=== PATIENT | female | born 1990 | race Caucasian/White ===

== ENCOUNTER → 2017-07-14 16:30 | Outpatient (CLI) | payer MEDICARE, BC ==
[2010-07-04 05:57] VITALS: BMI 34.6
[~2017-07-14 16:30] MED LIST: HYDROCODONE-APA1 TAB PO; IBUPROFEN600 MG PO; IBUPROFEN800 MG PO; PERCOCET 10/3251 TA1 PO; PRENATAL COMPLE1 TAB PO
[2017-08-05 19:28] VITALS: BMI 45.3
== END | disposition home or self-care (01) ==
LOC: D.LDO 16:30
DX: O36.8190 Decreased fetal movements, unspecified trimester, not applicable or unspecified (principal); Z3A.00 Weeks of gestation of pregnancy not specified

== ENCOUNTER → 2017-07-17 14:30 | Outpatient (CLI) | payer MEDICARE, BC ==
[2010-07-04 05:57] VITALS: BMI 34.6
[2017-08-05 19:28] VITALS: BMI 45.3
== END | disposition home or self-care (01) ==
LOC: D.LDO 14:30
DX: O36.8130 Decreased fetal movements, third trimester, not applicable or unspecified (principal); Z3A.36 36 weeks gestation of pregnancy

== ENCOUNTER → 2017-07-23 15:03 | Outpatient (CLI) | payer MEDICARE, BC ==
[2010-07-04 05:57] VITALS: BMI 34.6
[2017-08-05 19:28] VITALS: BMI 45.3
== END | disposition home or self-care (01) ==
LOC: D.LABREF 15:03 → D.LDO 15:03
DX: O16.3 Unspecified maternal hypertension, third trimester (principal); Z3A.37 37 weeks gestation of pregnancy

== ENCOUNTER → 2017-08-03 14:28 | Outpatient (CLI) | payer BC ==
[2010-07-04 05:57] VITALS: BMI 34.6
[2017-08-05 19:28] VITALS: BMI 45.3
== END | disposition home or self-care (01) ==
LOC: D.LDO 14:28
DX: O16.3 Unspecified maternal hypertension, third trimester (principal); Z3A.38 38 weeks gestation of pregnancy

== ENCOUNTER 2017-08-05 04:35 | Inpatient (IN) | payer BC, MEDICAID ==
[~2017-08-05] VITALS: Ht 165.1 cm; Wt 123.4 kg
[2017-08-05] VITALS (17 sets, daily range): BP systolic 110–140; BP diastolic 56–80; Ht 165.1 cm; Wt 123.4 kg
--- NOTE | ~2017-08-05 | OP ---
PATIENT NAME: SIRI STEIN MEDICAL RECORD: [id number] :90 LOCATION:[id number] ADMISSION DATE:08/05/17 SURGEON: RENNY SALEEM MD DATE OF OPERATION: 08/05/2017 PREOPERATIVE DIAGNOSES: 1. Term intrauterine . 2. History of previous section. POSTOPERATIVE DIAGNOSES: 1. Term intrauterine . 2. History of previous section. PROCEDURE: Repeat low transverse section and bilateral distal salpingectomy. SURGEON: Renny Saleem MD ESTIMATED BLOOD LOSS: 1200 cc. INTRAVENOUS FLUIDS: Per anesthesia record. SPECIMENS: Placenta and cord for gases. FINDINGS: 1. Viable , Apgars 9 at 1 and 9 at 5. 2. Placenta delivered manually intact, 3-vessel cord noted. 4. Grossly normal appearing adnexa bilaterally. PROCEDURE IN DETAIL: The patient was taken to the operating room where regional anesthesia was achieved without any difficulty. The patient was then prepped and draped in normal sterile fashion in the dorsal supine position. SCDs were on and functioning normally. The patient had a Guy catheter, which was draining freely. The patient was then prepped and draped. The anesthetic field was then tested using an Allis clamp. A repeat Pfannenstiel skin incision was made, extended downward to the underlying subcutaneous fat to level of the fascia, was then excised carefully in the midline and extended bilaterally using the Morejon scissors. Superior and inferior aspects of the fascial incision were then grasped with Akbar clamps times 2, tented upward, and sharply dissected from underlying rectus muscle using the Morejon scissors and the Bovie cautery. The rectus muscles were then bluntly in the midline and sharply dissected away from its peritoneal effusion. The peritoneum was then entered at the superior aspect of the incision using the Metzenbaum scissors. The peritoneal incision was then extended using the Metzenbaum scissors laterally and inferiorly. The bladder was carefully dissected downward. Several adhesions were dissected from the uterus. A bladder flap was developed using the Metzenbaum scissors. A bladder blade was placed into the pelvis. A low transverse incision was made in the uterus and extended superiorly and inferiorly using the Pelosi method. The vertex was delivered atraumatically followed by the body. The infant was bulb suctioned upon delivery. Cord was clamped times 2, cut, and was handed to the awaiting nursery team. Cord was then obtained for gases and placenta removed manually intact, 3-vessel cord was noted. Uterus was then exteriorized, thoroughly cleared of all clots and debris and vigorously massaged until good uterine tone was noted. Uterus was then repaired with 0 Vicryl in a running locked fashion OPERATIVE REPORT [id number] SARITASIRI times 2 with good hemostasis noted. Posterior cul-de-sac was then thoroughly irrigated and uterus was replaced into the pelvis. Anterior cul-de-sac was then thoroughly irrigated and the uterine incision again checked and found to be hemostatic. Prior to replacing the uterus into the pelvis, the bilateral fallopian tubes were identified. A defect was made in the mesosalpinx. The Allyssa clamps were then placed across the mesosalpinx and across the fallopian tube. The distal half of the tube was then excised and the pedicles oversewn with 2-0 Vicryl suture times 2. This was performed bilaterally with good hemostasis noted on both sides. The uterus was then replaced into the pelvis. Irrigation was performed as mentioned. Counts were correct times 2 for sponges, instruments and needles. The fascia was then repaired with 0 loop PDS times 1 in a running fashion. The subcutaneous tissue was then approximated using 0 plain gut and the skin repaired with shila. The patient tolerated the procedure well, was transferred to postanesthesia recovery stable without incident. TRANSINT:[id number] Voice Confirmation ID: [id number] DOCUMENT ID: [id number] RENNY SALEEM MD at 1614 CC: [id number] DICTATION DATE: 09/11/17 0548 CURBER: 09/11/17 0757 DIS IN 08/08/17 [facility] [address] [id number]
[~2017-08-05 04:35] MED LIST changes: -HYDROCODONE-APA1 TAB PO; -IBUPROFEN600 MG PO
[2017-08-05 05:58] LABS: APPEARANCE CLOUDY (CLEAR); BILIRUBIN NEGATIVE (NEGATIVE); COLOR YELLOW (YELLOW); GLUCOSE NEGATIVE (NEGATIVE); KETONE NEGATIVE (NEGATIVE); NITRITE NEGATIVE (NEGATIVE); PROTEIN NEGATIVE (NEGATIVE); SPECIFIC GRAVITY 1.015 (1.005-1.020); UROBILINOGEN NORMAL (NORMAL)
[2017-08-05 05:59] LABS: BACTERIA MANY /hpf (NONE SEEN); EPITHELIAL CELLS 0-5 /hpf (0-5); RED CELLS - URINE 0-5 /hpf (0-5); WHITE CELLS - URINE 0-5 /hpf (0-5)
[2017-08-05 06:42] LABS: HEMATOCRIT 36.4 % (36.0-48.0); HEMOGLOBIN 12.1 g/dL (12-16); MCH 30.8 pg (26.0-34.0); MCHC 33.2 g/dL (31.0-37.0); MCV 92.6 fL (80.0-100.0); RBC 3.93 10x6/uL (4.00-5.40); RDW 13.9 % (11.5-14.5); WBC 8.7 10x3/uL (4.8-10.8)
[2017-08-05 20:12] LABS: BASOPHILS 0.1 % (0-2); EOSINOPHILS 0.5 % (0-7); HEMATOCRIT 29.4 % (36.0-48.0); IMMATURE GRANULOCYTES 0.5 % (0-5); LYMPHOCYTES 18.2 % (15-50); MCH 30.3 pg (26.0-34.0); MCHC 32.7 g/dL (31.0-37.0); MCV 92.7 fL (80.0-100.0); MEAN PLATELET VOLUME 11.1 fL (7.4-10.4); MONOCYTES 6.6 % (2-11); NEUTROPHILS 74.1 % (40-80); PLATELET COUNT 145 10x3/uL (130-400); RBC 3.17 10x6/uL (4.00-5.40); RDW 14.2 % (11.5-14.5); WBC 8.8 10x3/uL (4.8-10.8)
[2017-08-05 20:14] LABS: HEMOGLOBIN 9.6 g/dL (12-16)
[2017-08-06 02:46] VITALS: BP 118/68
[2017-08-06 06:00] LABS: BASOPHILS 0.1 % (0-2); EOSINOPHILS 0.5 % (0-7); HEMATOCRIT 28.3 % (36.0-48.0); HEMOGLOBIN 9.3 g/dL (12-16); IMMATURE GRANULOCYTES 0.3 % (0-5); LYMPHOCYTES 15.8 % (15-50); MCH 30.4 pg (26.0-34.0); MCHC 32.9 g/dL (31.0-37.0); MCV 92.5 fL (80.0-100.0); MEAN PLATELET VOLUME 10.5 fL (7.4-10.4); MONOCYTES 6.8 % (2-11); NEUTROPHILS 76.5 % (40-80); PLATELET COUNT 146 10x3/uL (130-400); RBC 3.06 10x6/uL (4.00-5.40); RDW 14.3 % (11.5-14.5); WBC 9.5 10x3/uL (4.8-10.8)
[2017-08-06 06:13] LABS: RAPID PLASMA REAGIN Non Reactive (Non Reactive)
[2017-08-06 07:37] VITALS: BP 123/79
[2017-08-06 17:00] VITALS: BP 129/82
[2017-08-06 19:17] VITALS: BP 127/75
[2017-08-06 22:22] VITALS: BP 121/58
[2017-08-07 03:56] VITALS: BP 122/68
[2017-08-07 07:07] VITALS: BP 119/72
[2017-08-07 12:56] VITALS: BP 126/69
[2017-08-07 19:28] VITALS: BP 131/79
[2017-08-07 23:22] VITALS: BP 142/87
[2017-08-08 07:20] VITALS: BP 135/76
[2017-08-08] MEDS ORDERED: HYDROCODONE-APA1 TAB PO (10:16)
[2017-08-08] MEDS ORDERED: IBUPROFEN600 MG PO (10:16)
== END 2017-08-08 11:30 | disposition home or self-care (01) | DRG 766 ==
LOC: D.LDO 04:35 → D.LD 05:52
PROVIDERS: Obstetrics & Gynecology
PROC: 10D00Z1 Extraction of Products of Conception, Low, Open Approach (ICD-10-PCS; principal; 2017-08-05 07:30)
PROC: 0UB70ZZ Excision of Bilateral Fallopian Tubes, Open Approach (ICD-10-PCS; 2017-08-05 07:30)
DX: O99.824 Streptococcus B carrier state complicating childbirth (principal); Z3A.39 39 weeks gestation of pregnancy; Z37.0 Single live birth; O34.219 Maternal care for unspecified type scar from previous cesarean delivery; O99.214 Obesity complicating childbirth; Z30.2 Encounter for sterilization; Z30.09 Encounter for other general counseling and advice on contraception

== ENCOUNTER 2019-02-10 07:35 | Day surgery (SDC) | payer BC, MEDICAID ==
[2019-02-08 08:53] LABS: BASOPHILS 0.3 % (0-2); EOSINOPHILS 3.5 % (0-7); HEMATOCRIT 38.8 % (36.0-48.0); HEMOGLOBIN 13.6 g/dL (12-16); IMMATURE GRANULOCYTES 0.2 % (0-5); LYMPHOCYTES 29.4 % (15-50); MCH 30.2 pg (26.0-34.0); MCHC 35.1 g/dL (31.0-37.0); MCV 86.2 fL (80.0-100.0); MEAN PLATELET VOLUME 9.8 fL (7.4-10.4); MONOCYTES 7.8 % (2-11); NEUTROPHILS 58.8 % (40-80); WBC 5.8 10x3/uL (4.8-10.8)
[2019-02-08 09:03] LABS: PLATELET COUNT 215 10x3/uL (130-400)
[~2019-02-10] VITALS: Ht 165.1 cm; Wt 111.8 kg
[2019-02-10 07:03] VITALS: BP 116/76; Ht 165.1 cm; Wt 111.8 kg
[2019-02-10 07:19] LABS: HCG URINE NEGATIVE (NEGATIVE)
[~2019-02-10 07:35] MED LIST changes: +HYDROCHLOROTH12.5 M1 PO; +HYDROCODONE-APA1 TAB PO; +IBUPROFEN600 MG PO; +ZOLOFT100 MG PO
--- NOTE | 2019-03-13 14:22 | OP ---
PATIENT NAME: SIRI STEIN MEDICAL RECORD: [id number] :90 [facility] ADMISSION DATE: SURGEON: RENNY SALEEM MD DATE OF OPERATION: 02/10/2019 PREOPERATIVE DIAGNOSIS: Menomenorrhagia. POSTOPERATIVE DIAGNOSIS: Menomenorrhagia. PROCEDURES: Hysteroscopy, D&C, NovaSure endometrial ablation. SURGEON: Renny Saleem MD ANESTHESIA: General endotracheal. INTRAVENOUS FLUIDS: Per anesthesia record. HYSTEROSCOPIC FLUID LOSS: Less than 100 cc of 0.9 normal saline. SPECIMENS: Endometrial curettings. FINDINGS: 1. Grossly normal appearing external genitalia and cervix. 2. Grossly normal appearing proliferative endometrial cavity. DESCRIPTION OF THE PROCEDURE: The patient taken to the operating room where general anesthesia was achieved without any difficulty. The patient was then prepped and draped in normal sterile fashion in the dorsal lithotomy position in the [facility]. The bladder was drained of approximately 150 cc of clear yellow urine. At this point, a Graves speculum was placed into the vagina and the anterior lip of the cervix was grasped with single tooth tenaculum. The patient was sounded to approximately 9-1/2 cm. The patient was dilated to approximately 6 mm; at which point, the hysteroscope was introduced into the cervix without resistance. Survey of the endometrial cavity and endocervical canal was performed and then a #1 curette was used to perform a dilation in all 4 quadrants. At this point, the NovaSure device was calibrated to a measured depth of 5.5 cm and per record, the NovaSure device was then introduced into the cervix without resistance and a normal NovaSure protocol was used to deploy the device, both vacuum precheck and insufflation check were found to have passed and the NovaSure energy cycle was delivered without complication. Following the ablation, the cervical collar was pulled back and the device was unlocked and removed using the bow and arrow method. No bleeding was noted from the cervical os, following removal of the NovaSure device. The single tooth tenaculum was removed from the cervix. The patient tolerated the procedure well, transferred to the postanesthesia recovery stable without incident. TRANSINT:[id number] Voice Confirmation ID: [id number] DOCUMENT ID: [id number] OPERATIVE REPORT [id number] SIRI STEIN NA, RENNY Chaudhari MD at 1422 CC: [id number] DICTATION DATE: 02/17/19 1614 BROOM MAN: 02/17/19 2240 [facility] 02/10/[id number] [place] [address]
== END 2019-02-10 11:35 | disposition home or self-care (01) ==
LOC: D.OPS 07:35 → D.PAN 08:30 → D.OPS 11:35
PROVIDERS: ATTEND Obstetrics & Gynecology
DX: N92.0 Excessive and frequent menstruation with regular cycle (principal); E28.2 Polycystic ovarian syndrome